=== PATIENT | male | born 1985 | race African-American/Black ===

== ENCOUNTER 2018-06-02 02:13 | Emergency (ER) | payer OTHER ==
[~2018-06-02] VITALS: Ht 177.8 cm; Wt 84.4 kg
[~2018-06-02 02:13] MED LIST: ALBU2.5V8 INH
[2018-06-02 02:20] VITALS: BP 126/69
[2018-06-02] MEDS ORDERED: PRED50TA PO (02:33)
[2018-06-02] MEDS ORDERED: HYDR25TA PO (02:33)
--- NOTE | 2018-06-02 02:34 | PHYS DOC ---
Past Medical History Past Medical History: Asthma, Hypertension Additional Past Medical Histor: insominia Past Surgical History: No Surgical History Additional Past Surgical Histo: right hand Alcohol Use: Occasionally Drug Use: None Adult General Chief Complaint Chief Complaint: SKIN PROBLEM HPI HPI Patient is a 32 year old male who presents with rash. This started approximately 2 hours ago. Patient took Benadryl without any significant improvement. Patient reports that the rash is red and itchy. It is everywhere. Patient denies being able to identify a trigger to include new foods, new medicines, nor any lotions, detergents, skin creams that are new. Patient denies any difficulty breathing. Denies any airway issues. Denies any nausea or vomiting.[] Review of Systems Review of Systems Constitutional: Denies fever or chills [] Eyes: Denies change in visual acuity, redness, or eye pain [] HENT: Denies nasal congestion or sore throat [] Respiratory: Denies cough or shortness of breath [] Cardiovascular: No chest pain or palpitations[] GI: Denies abdominal pain, nausea, vomiting, bloody stools or diarrhea [] : Denies dysuria or hematuria [] Musculoskeletal: Denies back pain or joint pain [] Integument: See history of present illness[] Neurologic: Denies headache, focal weakness or sensory changes [] Endocrine: Denies polyuria or polydipsia [] All other systems were reviewed and found to be within normal limits, except as documented in this note. Allergies Allergies Allergies Coded Allergies Type Severity Reaction Last Updated Verified No Known Drug Allergies 01/09/14 No Physical Exam Physical Exam Constitutional: Well developed, well nourished, no acute distress, non-toxic appearance. [] HENT: Normocephalic, atraumatic, bilateral external ears normal, oropharynx moist, no oral exudates, nose normal. [] Eyes: PERRLA, EOMI, conjunctiva normal, no discharge. [] Neck: Normal range of motion, no tenderness, supple, no stridor. [] Cardiovascular:Heart rate regular rhythm, no murmur [] Lungs & Thorax: Bilateral breath sounds clear to auscultation [] Abdomen: Bowel sounds normal, soft, no tenderness, no masses, no pulsatile masses. [] Skin: Warm, dry, erythematous wheals diffusely on chest, abdomen, back, all 4 extremities. There is no palmar or sole involvement. There is no skin sloughing. There are no petechiae.[] Back: No tenderness, no CVA tenderness. [] Extremities: No tenderness, no cyanosis, no clubbing, ROM intact, no edema. [] Neurologic: Alert and oriented X 3, normal motor function, normal sensory function, no focal deficits noted. [] Psychologic: Affect normal, judgement normal, mood normal. [] Current Patient Data Vital Signs Vital Signs Date Time Temp Pulse Resp B/P (MAP) Pulse Ox O2 Delivery O2 Flow Rate FiO2 06/02/18 02:20 97.7 80 18 126/69 (88) 100 Room Air 97.7 EKG EKG [] Radiology/Procedures Radiology/Procedures [] Course & Med Decision Making Course & Med Decision Making Pertinent Labs and Imaging studies reviewed. (See chart for details) Medical decision making: There is no evidence of anaphylaxis, no evidence of Perez-Adarsh syndrome, no evidence of toxic epidermal necrolysis, no evidence of staph scalded skin syndrome.[] Dragon Disclaimer Dragon Disclaimer This electronic medical record was generated, in whole or in part, using a voice recognition dictation system. Departure Departure Impression: Primary Impression: Urticaria Disposition: HOME, SELF-CARE Condition: GOOD Referrals: SUSAN CHAMBERLAIN MD (PCP) Follow-up in 2 days Patient Instructions: Elliston Rashes Additional Instructions: Follow-up with your regular doctor in 2 days. Return to the ER if worsening rash , fever, or any other concerns. Scripts Prednisone (PREDNISONE) 50 Mg Tablet 50 MG PO DAILY for 7 Days, #7 TAB Prov: EMLEY SHERIFF DO 06/02/18 Hydroxyzine Hcl (HYDROXYZINE HCL) 25 Mg Tablet 25 MG PO QID, #30 TAB Prov: EMELY SHERIFF DO 06/02/18 EMELY SHERIFF DO Jun 02, 2018 02:34
[2018-06-02] MEDS ORDERED: hydrOXYzine IM 50 MG/ML VIAL IM ONE (03:00)
[2018-06-02] MEDS ORDERED: predniSONE 20 MG TABLET PO ONE (03:00)
== END 2018-06-02 02:52 | disposition home or self-care (01) ==
LOC: ER 02:13
DX: L50.9 Urticaria, unspecified (principal); I10 Essential (primary) hypertension; J45.909 Unspecified asthma, uncomplicated
CPT/HCPCS: 96372; 99283; J3410; J7512

== ENCOUNTER 2018-11-26 14:49 | Emergency (ER) | payer OTHER ==
[~2018-11-26] VITALS: Ht 180.3 cm; Wt 85.7 kg
[~2018-11-26 14:49] MED LIST changes: +HYDR25TA PO; +PRED50TA PO
--- NOTE | 2018-11-26 15:08 | PHYS DOC ---
Past Medical History Past Medical History: Asthma, Hypertension Additional Past Medical Histor: insominia Past Surgical History: No Surgical History Additional Past Surgical Histo: right hand Smoking: Cigarettes (patient will smoke a rare cigarette, not daily, or even weekly) Alcohol Use: Occasionally Drug Use: None Adult General Chief Complaint Chief Complaint: CHEST PAIN HPI HPI Patient is a 33-year-old -[place] male who presents to the emergency department for evaluation. The patient states that at about 11:00 this morning, he began experiencing some intermittent left-sided chest discomfort, which she describes as something between a sharp and a tight type sensation under his left pectoral area. The pain will come for a few seconds and then last, but he has had numerous on-and-off episodes this morning. Both movement of his upper ex tremities and upper torso seemed to worsen his symptoms, he has not noticed any definite exacerbation of his pain with exertion. He denies any shortness of breath, or any definite pleuritic pain, although he does "feel" his chest somewhat when he takes a deep breath. He has not had any dizziness or lightheadedness. He has a personal history of hypertension, as well as a family history of the same, but no personal or family history of coronary artery disease that he is aware of. He has not had any diaphoresis, shortness of breath, numbness, weakness, nausea, vomiting, or abdominal pain. There are no alleviating or exacerbating factors to his symptoms, except as noted above. Review of Systems Review of Systems Constitutional: Denies fever or chills [] Eyes: Denies change in visual acuity, redness, or eye pain [] HENT: Denies nasal congestion or sore throat [] Respiratory: Denies cough or shortness of breath [] Cardiovascular: No additional information not addressed in HPI [] GI: Denies abdominal pain, nausea, vomiting, bloody stools or diarrhea [] : Denies dysuria or hematuria [] Musculoskeletal: Denies back pain or joint pain [] Integument: Denies rash or skin lesions [] Neurologic: Denies headache, focal weakness or sensory changes [] Endocrine: Denies polyuria or polydipsia [] All other systems were reviewed and found to be within normal limits, except as documented in this note. Allergies Allergies Allergies Coded Allergies Type Severity Reaction Last Updated Verified No Known Drug Allergies 01/09/14 No Physical Exam Physical Exam PHYSICAL EXAM: CONSTITUTIONAL: Well developed, well nourished HEAD: normocephalic, atraumatic EENT: PERRL, EOMI. Conjunctivae normal color, sclerae non-icteric; moist mucous membranes. NECK: Supple, non-tender; no meningismus. LUNGS: Lungs CTA, breathing even and unlabored. Normal air movement. HEART: Regular rate and rhythm, no murmur CHEST: No deformity; non-tender ABDOMEN: The abdomen is soft, and non-tender, no masses or bruits. EXTREM: Normal ROM; no deformity, no calf tenderness. Normal pulses palpable in all extremities. There is no pedal edema. SKIN: No rash; no diaphoresis NEURO: Alert; normal speech and cognition; CN's grossly intact; strength grossly intact without focal deficit. BACK: No CVA TTP. Current Patient Data Vital Signs Vital Signs Date Time Temp Pulse Resp B/P (MAP) Pulse Ox O2 Delivery O2 Flow Rate FiO2 11/26/18 14:50 98.4 78 12 150/90 (110) 98 Room Air 98.4 Lab Values Laboratory Tests Test 11/26/18 15:25 White Blood Count 5.6 x10^3/uL (4.0-11.0) Red Blood Count 4.61 x10^6/uL (4.30-5.70) Hemoglobin 13.9 g/dL (13.0-17.5) Hematocrit 39.8 % (39.0-53.0) Mean Corpuscular Volume 86 fL (79-100) Mean Corpuscular Hemoglobin 30 pg (25-35) Mean Corpuscular Hemoglobin Concent 35 g/dL (31-37) Red Cell Distribution Width 14.0 % (11.5-14.5) Platelet Count 210 x10^3/uL (140-400) Neutrophils (%) (Auto) 68 % (31-73) Lymphocytes (%) (Auto) 17 % (24-48) L Monocytes (%) (Auto) 9 % (0-9) Eosinophils (%) (Auto) 5 % (0-3) H Basophils (%) (Auto) 1 % (0-3) Neutrophils # (Auto) 3.8 x10^3uL (1.8-7.7) Lymphocytes # (Auto) 1.0 x10^3/uL (1.0-4.8) Monocytes # (Auto) 0.5 x10^3/uL (0.0-1.1) Eosinophils # (Auto) 0.3 x10^3/uL (0.0-0.7) Basophils # (Auto) 0.0 x10^3/uL (0.0-0.2) D-Dimer (Shannon) < 0.27 ug/mlFEU Sodium Level 141 mmol/L (136-145) Potassium Level 4.0 mmol/L (3.5-5.1) Chloride Level 105 mmol/L (98-107) Carbon Dioxide Level 27 mmol/L (21-32) Anion Gap 9 (6-14) Blood Urea Nitrogen 13 mg/dL (8-26) Creatinine 1.1 mg/dL (0.7-1.3) Estimated GFR (Cockcroft-Gault) 93.3 BUN/Creatinine Ratio 12 (6-20) Glucose Level 103 mg/dL (70-99) H Calcium Level 8.8 mg/dL (8.5-10.1) Total Bilirubin 0.4 mg/dL (0.2-1.0) Aspartate Amino Transferase (AST) 27 U/L (15-37) Alanine Aminotransferase (ALT) 32 U/L (16-63) Alkaline Phosphatase 61 U/L (46-116) Troponin I Quantitative < 0.017 ng/mL (0.000-0.055) Total Protein 7.2 g/dL (6.4-8.2) Albumin 4.0 g/dL (3.4-5.0) Albumin/Globulin Ratio 1.3 (1.0-1.7) Laboratory Tests 11/26/18 15:25 Laboratory Tests 11/26/18 15:25 EKG EKG Normal sinus rhythm at a rate of 70 beats for minute, normal axis, normal intervals, there is T wave inversion in lead III only, with an early repolarization pattern present in the lateral leads. There are no pathologic Q waves present. There are no old EKG's available for comparison.[] Repeat EKG at 4:15 PM shows Normal sinus rhythm at a rate of 71 bpm, normal axis, normal intervals, unchanged nonspecific changes present similar to prior EKG from today. Radiology/Procedures Radiology/Procedures [PROCEDURE: PORTABLE CHEST 1V Examination: PORTABLE CHEST 1V History: Chest pain Comparison/Correlation: None Findings: Portable upright chest x-ray exam was performed. Heart size and bony vasculature are normal. No infiltrate or pleural effusion. No pneumothorax. Bony structures are unremarkable. Impression: No active disease. ] Course & Med Decision Making Course & Med Decision Making Pertinent Labs and Imaging studies reviewed. (See chart for details) []The patient's condition remained stable. We both think that his pain is due to a muscle strain, as he feels with movement in his upper chest.I had an e xtensive discussion with the patient about the limitations of ER cardiac evaluation in definitively ruling out acute coronary syndrome. We discussed limitation of the ER evaluation and a singe ED troponin in r/o AMI, and the risks involved in missed diagnosis of acute coronary syndrome including or permanent debility. I discussed overnight observation for further formal cardiac evaluation to rule out acute coronary syndrome. After expressing understanding of the limitations of ER cardiac evaluation, as well as the risks of missed diagnosis, the patient declined further cardiac evaluation at this time. The patient was mentally competent, and given opportunity to ask questions about the diagnosis and recommended plan of care. I stressed the importance of outpatient follow-up, and returning to the emergency department for new or worsening symptoms, or if the patient develops new or worsening symptoms, and needs further evaluation. Dragon Disclaimer Dragon Disclaimer This electronic medical record was generated, in whole or in part, using a voice recognition dictation system. Departure Departure Impression: Primary Impression: Chest pain Disposition: 01 HOME, SELF-CARE Condition: STABLE Referrals: UNKNOWN PCP NAME (PCP) Patient Instructions: Chest Pain (Nonspecific), Chest Wall Pain MEEK GONZALEZ MD Nov 26, 2018 15:08
--- NOTE | 2018-11-26 15:23 | EKG ---
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
--- NOTE | 2018-11-26 15:23 | RAD ---
Examination: PORTABLE CHEST 1V History: Chest pain Comparison/Correlation: None Findings: Portable upright chest x-ray exam was performed. Heart size and bony vasculature are normal. No infiltrate or pleural effusion. No pneumothorax. Bony structures are unremarkable. Impression: No active disease. Electronically signed by: Rajat Tariq MD (11/26/2018 3:20 PM) [facility]
[2018-11-26 15:37] LABS: BASO % 1 % (0-3); EOS # 0.3 x10^3/uL (0.0-0.7); EOS % 5 % (0-3); HEMATOCRIT 39.8 % (39.0-53.0); HEMOGLOBIN 13.9 g/dL (13.0-17.5); LYMPH % 17 % (24-48); MEAN CORPUSCULAR HEMOGLOBIN 30 pg (25-35); MEAN CORPUSCULAR HGB CONC 35 g/dL (31-37); MEAN CORPUSCULAR VOLUME 86 fL (79-100); MONO # 0.5 x10^3/uL (0.0-1.1); MONO % 9 % (0-9); NEUT # 3.8 x10^3uL (1.8-7.7); NEUT % 68 % (31-73); PLATELET COUNT 210 x10^3/uL (140-400); RED BLOOD COUNT 4.61 x10^6/uL (4.30-5.70); WHITE BLOOD COUNT 5.6 x10^3/uL (4.0-11.0)
[2018-11-26 15:49] LABS: CALCIUM 8.8 mg/dL (8.5-10.1); CREATININE 1.1 mg/dL (0.7-1.3); GFR 93.3
[2018-11-26 15:55] LABS: ALBUMIN/GLOBULIN RATIO 1.3 (1.0-1.7); TOTAL BILIRUBIN 0.4 mg/dL (0.2-1.0); TOTAL PROTEIN 7.2 g/dL (6.4-8.2)
[2018-11-26 16:25] VITALS: BP 144/91
--- NOTE | 2018-11-27 06:55 | EKG ---
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
== END 2018-11-26 16:31 | disposition home or self-care (01) ==
LOC: ER 14:49
DX: R07.89 Other chest pain (principal); I10 Essential (primary) hypertension; J45.909 Unspecified asthma, uncomplicated; F17.210 Nicotine dependence, cigarettes, uncomplicated
CPT/HCPCS: 36415; 71045; 80053; 84484; 85025; 85379; 93005; 99285-25